=== PATIENT | male | born 1945 | race African-American/Black ===

== ENCOUNTER 2023-07-31 14:42 | Outpatient (REF) | payer MEDICAID, SELFPAY ==
[2023-07-31 16:22] LABS: Vitamin B12 492 pg/mL (200-900)
[2023-08-01 08:22] LABS: Syphilis Screen Nonreactive (Nonreactive)
[2023-08-01 17:08] LABS: Lyme Abs Screen <0.90 index
== END 2023-07-31 14:43 | disposition home or self-care (01) ==
LOC: HO.LAB 14:42
PROVIDERS: Psychiatry & Neurology Neurology; Visit Provider Internal Medicine
DX: G30.9 Alzheimer's disease, unspecified (principal)
CPT/HCPCS: 36415; 82607; 86617; 86618; 86780

== ENCOUNTER 2025-03-05 08:18 | Outpatient (AMB) | payer MEDICAID, SELFPAY ==
--- OUTSIDE RECORDS SUMMARY | 2025-03-05 08:26 | XMS_ITS | Clinical Summary ---
Author Organization [address] [facility] Address [address] [place] [address] Phone Care Team Providers Care Maori Physiotherapist Name Role Phone Hodan Mobley DO Primary Care Provider [phone] Allergies No known active allergies Medications melatonin 3 mg tablet Take 2 tablets (6 mg total) by mouth at bedtime. 5 Active hgwqvmie-bnv-hsao ous sulfate 4.5 mg iron tablet Take 1 tablet by mouth 1 (one) time each day. 5 Active acetaminophen (TYLENOL) 325 mg tablet Take 2 tablets (650 mg total) by mouth every 4 (four) hours if needed for mild pain. Active memantine (NAMENDA) 10 mg tablet Take 1 tablet (10 mg total) by mouth 1 (one) time each day. for 90 days 30 each 5 Active tamsulosin (FLOMAX) 0.4 mg 24 hr capsuleIndication s:Benign prostatic hyperplasia with lower urinary tract symptoms Take 1 capsule (0.4 mg total) by mouth 1 (one) time each day. TAKE 1 CAPSULE BY MOUTH DAILY. TAKE 30 MINS AFTER SAME MEAL EVERY DAY. Strength: 0.4 mg 90 each 1 5 07/20/20 25 Active amLODIPine (NORVASC) 10 mg tabletIndications :Essential (primary) hypertension Take 1 tablet (10 mg total) by mouth 1 (one) time each day. 90 each 1 0507/20/20 Active lisinopriL (PRINIVIL,ZESTRIL ) 10 mg tabletIndications :Essential (primary) hypertension Take 2 tablets (20 mg total) by mouth 1 (one) time each day. 180 each 5 07/20/20 Active atorvastatin (LIPITOR) 20 mg tabletIndications :Subarachnoid hemorrhage ([facility] V24, [facility] V28) Take 1 tablet (20 mg total) by mouth at bedtime. 90 each 5 07/20/20 Active Active Problems Problem Noted Date Diagnosed Date Subarachnoid hemorrhage ([facility] V24, [facility] V2 8) 01/08/2025 Fainting 07/16/2024 Dementia without behavioral disturbance, psychotic disturbance, mood disturbance, or anxiety ([facility] V24, [facility] V28) 06/07/2024 BPH (benign prostatic hyperplasia) 10/11/2022 HTN (hypertension) 10/11/2022 Encounters Date Type Department Care Team Description 01/23/2025 Telephone Internal Medicine - [address] [phone] Hodan Mobley DO vna 01/21/2025 10:30 AM EDT Office Visit Internal Medicine - [address] [phone] Shanelle Hoyos NP Hospital discharge follow-up (Primary Dx); Subarachnoid hemorrhage ([facility] V24, [facility] V28); BPH associated with nocturia; 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, psychotic disturbance, mood disturbance, or anxiety, unspecified timing of dementia onset ([facility] V24, [facility] V28); Essential (primary) hypertension; Benign prostatic hyperplasia with lower urinary tract symptoms 01/17/2025 Telephone Internal Medicine - [address] [place] [phone] Hodan Mobley DO VNA 01/13/2025 Telephone Internal Medicine - [address] [place] [phone] Hodan Mobley DO Hospital Follow-up 01/13/2025 Plan of Care Documentation [facility] [address] [place] [phone] 01/08/2025 4:20 PM EDT - 01/16/2025 10:50 AM EDT Hospital Encounter [facility] [address] [place] [phone] Bridgett Headley DO Essential (primary) hypertension; Benign prostatic hyperplasia with lower urinary tract symptoms Discharge Disposition: Home or Self Care 12/06/2024 8:45 AM EDT [facility] [place] [phone] Kacey Bernard NP Primary hypertension (Primary Dx); Benign prostatic hyperplasia with urinary frequency; 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, psychotic disturbance, mood disturbance, or anxiety, unspecified timing of dementia onset ([facility] V24, [facility] V28) from Last 3 Months Immunizations Name Administration Dates Next Due Influenza trivalent, 0.5mL ( Fluzone High-dose) 65yo and older 05/10/2023 Medical History Medical History Date Comments Hypertension Benign prostatic hyperplasia Dementia ([facility] V24, [facility] V28) Cerebrovascular accident ([facility] V24, [facility] V 28) Social History Tobacco Use Types Packs/Day Years Used Date Smoking Tobacco: Never Tobacco Cessation:Counseling Given: Not Answered Alcohol Use Standard Drinks/Week Comments Never 0 (1 standard drink = 0.6 oz pur e alcohol) Health Literacy Answer Date Recorded How often do you need to hav e someone help you when you read instructions, pamphlets, or other written material from your doctor or pharmacy? Always 01/15/2025 Caregiver: How often do you need to have someone help you when you read instructions, pamphlets, or other written material from your doctor or pharmacy? Not on file 01/15/2025 Transportation Answer Date Recorded Has the lack of transportati on kept you from meetings, work, or from getting things needed for daily living? No Has the lack of transportati on kept you from medical appointments or from getting medications? No 01/09/2025 Social Isolation Answer Date Recorded How often do you feel lonely or isolated from those around you? Unable to respond 01/15/2025 Sex and Gender Information Value Date Recorded Sex Assigned at Male 01/08/2025 8:43 AM EDT Legal Sex Male 8:21 PM EST Gender Identity Male 01/08/2025 8:43 AM EDT Sexual Orientation Straight 01/08/2025 8: 43 AM EDT Obstetrics History Last Filed Vital Signs Vital Sign Reading Time Taken Comments Blood Pressure 118/50 01/21/2025 10:34 AM EDT Pulse 80 01/21/2025 10:34 AM EDT Temperature 36.8 C (98.2 F) 01/16/2025 8:49 AM EDT Respiratory Rate 18 01/16/2025 3:35 AM EDT Oxygen Saturation 100% 01/16/2025 8:49 AM EDT Inhaled Oxygen Concentration - - Weight 74.3 kg (163 lb 12.8 oz) 025 10:34 AM EDT Height 180 cm (5' 10.87 ) 01/08/2025 11 :50 AM EDT Body Mass Index 22.93 01/08/2025 11:50 AM EDT Plan of Treatment Upcoming Encounters Date Type Department Care Team (Late st Contact Info) Description 06/18/2025 9:00 AM EDT [facility] [address] [place] [address] Hodan Mobley, [address] [place] [address] Health Maintenance Due Date Last Done Comments DTaP,Tdap,and Td Vaccines (1 - Tdap) 11/11/1963 Zoster Vaccines (1 of 2) 1994 RSV Immunization Adult Patients (1 - 1-dose 75+ series) 11/11/2019 COVID-19 Vaccine ( - 2023-2 5 season) 2024 Influenza Vaccine (#1) 2025 05/10/2023 Hypertension/CHF/CAD Annual BMP Blood Test 01/15/2026 01/15/2025, 01/09/2025, 12/26/2024 Social Influencers of Health Screening 01/15/2026 01/15/2025 Falls Risk Assessment 01/16/2026 01/16/2025 Depression Screening 01/21/2026 01/21/2025 Cholesterol Screening (Lipid Panel) 06/07/2029 06/07/2024, 06/07/2024 HIB Vaccines Aged Out No longer eligi ble based on patient's age to complete this topic HPV Vaccines Aged Out No longer eligi ble based on patient's age to complete this topic Hepatitis A Vaccines Aged Out No long er eligible based on patient's age to complete this topic Hepatitis B Vaccines Aged Out No long er eligible based on patient's age to complete this topic IPV Vaccines Aged Out No longer eligi ble based on patient's age to complete this topic MMR Vaccines Aged Out No longer eligi ble based on patient's age to complete this topic Meningococcal ACWY Vaccine Aged Out N o longer eligible based on patient's age to complete this topic Meningococcal B Vaccine Aged Out No l onger eligible based on patient's age to complete this topic Pneumococcal Vaccine: 50+ Years Discontinued RSV Immunization Patients Under 20 months Aged Out No longer eligible based on patient's age to complete this topic Varicella Vaccines Aged Out No longer eligible based on patient's age to complete this topic Procedures Procedure Name Priority Date/Time Associated Diagnosis Comments ECG ANNOTATED 01/17/2025 GROVES URINE CULTURE TUBE Routine 01/15/2025 11:35 AM EDT URINALYSIS WITH REFLEX MICROSCOPIC AND CULTURE Routine 01/15/2025 11:35 AM EDT URINALYSIS WITH REFLEX MICROSCOPIC AND CULTURE Routine 01/15/2025 11:35 AM EDT LAVENDER - EDTA Routine 01/15/2025 8:55 AM EDT EXTRA TUBES Routine 01/15/2025 8:55 AM EDT COMPREHENSIVE METABOLIC PANEL Routine 01/15/2025 8:55 AM EDT COMPLETE BLOOD COUNT Routine 01/15/2025 4:45 AM EDT XR SHOULDER 2+ VIEWS LEFT Routine 01/11/2025 1:21 AM EDT XR ELBOW 3+ VIEWS LEFT Routine 01/11/2025 1:21 AM EDT ECG 12-LEAD STAT 01/10/2025 11:56 PM EDT POCT GLUCOSE BLOOD Routine 01/10/2025 11 :45 PM EDT CBC WITH AUTO DIFFERENTIAL Routine 01/09/2025 5:13 AM EDT COMPREHENSIVE METABOLIC PANEL Routine 01/09/2025 5:13 AM EDT CBC AND DIFFERENTIAL Routine 01/09/2025 5:13 AM EDT BASIC METABOLIC PANEL Routine 12/26/2024 10:32 AM EDT Primary hypertension LIPID PANEL Routine 06/07/2024 from Last 3 Months or Most Recently Relevant to Health Maintenance Results * ECG-Annotated (01/17/2025) us Provider Onbase MD ECG ORDERABLES Final Result * Urinalysis with reflex microscopic and culture (01/15/2025 11:35 AM EDT) Specific [place] Urine 1.010 1.003 - 1.030 LAB URINALYSIS - AUTOMATED METHOD 01/15/2025 11:54 AM [facility] pH, Urine 7.0 5.0 - 8.0 pH LAB URINALYSIS - AUTOMATED METHOD 01/15/2025 11:54 AM [facility] Leukocytes, Urine Negative Negative LAB URINALYSIS - AUTOMATED METHOD 01/15/2025 11:54 AM [facility] Nitrite, Urine Negative Negative LAB URINALYSIS - AUTOMATED METHOD 01/15/2025 11:54 AM [facility] Protein, Urine Negative <=Trace mg/dL LAB URINALYSIS - AUTOMATED METHOD 01/15/2025 11:54 AM EDT [facility] Glucose, Urine Negative Negative mg/dL LAB URINALYSIS - AUTOMATED METHOD 01/15/2025 11:54 AM EDT [facility] Ketones, Urine Negative Negative mg/dL LAB URINALYSIS - AUTOMATED METHOD 01/15/2025 11:54 AM EDT [facility] Urobilinogen, Urine 1.0 0.2 - 1.0 mg/dL LAB URINALYSIS - AUTOMATED METHOD 01/15/2025 11:54 AM EDT [facility] Bilirubin, Urine Negative Negative LAB URINALYSIS - AUTOMATED METHOD 01/15/2025 11:54 AM EDT [facility] Blood, Urine Negative Negative LAB URINALYSIS - AUTOMATED METHOD 01/15/2025 11:54 AM EDT [facility] Urine Urine specimen obtained by clean catch procedure / Unknown Non-blood Collection / Unknown 01/15/2025 11:35 AM EDT 01/15/2025 11:42 AM EDT us Sandrita KULKARNI LAB URINE ORDERABLES Final R esult [facility] [address] [place] [address], [place] [phone] * [place] urine culture tube (01/15/2025 11:35 AM EDT) Extra Tube Hold for add-ons. 01/15/2025 1:01 PM EDT [facility] Comment:Auto resulted. Urine Urine specimen obtained by clean catch procedure / Unknown Non-blood Collection / Unknown 01/15/2025 11:35 AM EDT 01/15/2025 11:42 AM EDT us Sandrita KULKARNI LAB URINE ORDERABLES Final R esult [facility] [address] [place] [address], [place] [phone] * Lavender tube (01/15/2025 8:55 AM EDT) [facility] Extra Tube Hold for add-ons. 01/15/2025 11:01 AM EDT [facility] Comment:Auto resulted. Blood Venous blood specimen / Unknown Venipuncture / Unknown 01/15/2025 8:55 AM EDT 01/15/2025 9:03 AM EDT us Bridgett Headley DO LAB BLOOD ORDERABLES Nina cartwright Result [facility] [address] [place] [address], [place] [phone] * (ABNORMAL) Comprehensive metabolic panel (01/15/2025 8:55 AM EDT) Only the most recent of2 resultswithin the time period is included. [facility] Sodium 137 133 - 145 mmol/L LAB CHEMISTRY METHOD 01/15/2025 9:47 AM [facility] Potassium 4.7 3.5 - 5.5 mmol/L LAB CHEMISTRY METHOD 01/15/2025 9:47 AM [facility] Chloride 102 96 - 110 mmol/L LAB CHEMISTRY METHOD 01/15/2025 9:47 AM [facility] CO2 31 21 - 32 mmol/L LAB CHEMISTRY METHOD 01/15/2025 9:47 AM [facility] Anion Gap 4 3 - 11 LAB CHEMISTRY METHOD 01/15/2025 9:47 AM [facility] Glucose 111(H) 70 - 100 mg/dL LAB CHEMISTRY METHOD 01/15/2025 9:47 AM [facility] BUN 19 5 - 25 mg/dL LAB CHEMISTRY METHOD 01/15/2025 9:47 AM [facility] Creatinine 1.15 0.70 - 1.30 mg/dL LAB CHEMISTRY METHOD 01/15/2025 9:47 AM [facility] eGFR 64 >=60 mL/min/1. 73m2 LAB CHEMISTRY METHOD 01/15/2025 9:47 AM [facility] Comment:Calculation based on the Chronic Kidney Disease Epidemiology Collaboration (CKD-EPI) equation refit without adjustment for race. BUN/Creatinine Ratio 16.5 LAB CHEMISTRY METHOD 01/15/2025 9:47 AM [facility] Calcium 9.7 8.5 - 10.5 mg/dL LAB CHEMISTRY METHOD 01/15/2025 9:47 AM [facility] AST (SGOT) 11 10 - 42 unit/L LAB CHEMISTRY METHOD 01/15/2025 9:47 AM [facility] ALT (SGPT) 18 10 - 60 unit/L LAB CHEMISTRY METHOD 01/15/2025 9:47 AM [facility] Alkaline Phosphatase 99 42 - 121 unit/L LAB CHEMISTRY METHOD 01/15/2025 9:47 AM [facility] Total Protein 7.9 6.0 - 8.0 g/dL LAB CHEMISTRY METHOD 01/15/2025 9:47 AM [facility] Albumin 4.0 3.2 - 5.0 g/dL LAB CHEMISTRY METHOD 01/15/2025 9:47 AM [facility] Total Bilirubin 0.7 0.0 - 1.4 mg/dL LAB CHEMISTRY METHOD 01/15/2025 9:47 AM [facility] Blood Venous blood specimen / Unknown Venipuncture / Unknown 01/15/2025 8:55 AM EDT 01/15/2025 9:03 AM EDT us Bridgett Headley DO LAB BLOOD ORDERABLES Nina cartwright Result [facility] [address] [place] [address], * (ABNORMAL) Complete blood count (01/15/2025 4:45 AM EDT) [facility] Signature WBC 4.7(L) 4.8 - 10.8 K/mcL LAB HEMETOLOGY METHOD 01/15/2025 5:43 AM EDT [facility] RBC 4.70 4.50 - 5.50 M/mcL LAB HEMETOLOGY METHOD 01/15/2025 5:43 AM EDT [facility] Hemoglobin 14.7 13.5 - 17.5 g/dL LAB HEMETOLOGY METHOD 01/15/2025 5:43 AM EDT [facility] Hematocrit 47.5 42.0 - 54.0 % LAB HEMETOLOGY METHOD 01/15/2025 5:43 AM EDT [facility] MCV 101.5(H) 79.0 - 98.0 FL LAB HEMETOLOGY METHOD 01/15/2025 5:43 AM EDT [facility] MCH 31.4 27.0 - 32.0 pcg LAB HEMETOLOGY METHOD [facility] MCHC 30.9(L) 32.0 - 37.0 g/dL LAB HEMETOLOGY METHOD 01/15/2025 5:43 AM EDT [facility] RDW 11.8 11.0 - 15.0 % LAB HEMETOLOGY METHOD 01/15/2025 5:43 AM EDT [facility] Platelets 245 130 - 400 K/mcL LAB HEMETOLOGY METHOD 01/15/2025 5:43 AM EDT [facility] MPV 9.9 7.0 - 11.0 FL LAB HEMETOLOGY METHOD 01/15/2025 5:43 AM EDT [facility] NRBC 0.0 <1.0 % LAB HEMETOLOGY METHOD 01/15/2025 5:43 AM EDT [facility] NRBC Absolute 0.00 <0.10 K/mcL LAB HEMETOLOGY METHOD 01/15/2025 5:43 AM EDT [facility] Blood Venous blood specimen / Unknown Venipuncture / Unknown 01/15/2025 4:45 AM EDT 01/15/2025 5:34 AM EDT us Sandrita KULKARNI LAB BLOOD ORDERABLES Final R esult [facility] [address] [place] [address], * XR Elbow 3+ Views Left (01/11/2025 1:21 AM EDT) Anatomical Region Laterality Modality Upper Extremities, Elbow Left Radiogr aphic Imaging 01/11/2025 10:4 3 AM EDT Impressions 01/11/2025 10:46 AM EDT No acute fracture or subluxation. -------- FINAL REPORT -------- Dictated By: Keith Orlando Dictated Date: 01/11/2025 10:43 ET Assigned Physician: Keith Orlando Reviewed and Electronically Signed By: Keith Orlando Signed Date: 01/11/2025 10:46 ET Workstation ID: [id number] Transcribed By: Self Edit Transcribed Date: 01/11/2025 10:43 ET Narrative 01/11/2025 10:46 AM EDT EXAMINATION: LEFT ELBOW LEFT SHOULDER CLINICAL INFORMATION: Pain. Fall COMPARISON: None. TECHNIQUE: 4 views left elbow 4 views left shoulder FINDINGS: Left shoulder: The alignment is normal. There is no fracture, focal lesion or periosteal new bone. There is no abnormal soft tissue calcification. There are minor cystic/erosive changes at the expected insertion of the rotator cuff. There is minor spurring of the undersurface of the acromion. No suspicious abnormality in the visualized chest Left elbow: The alignment is normal. No fracture or focal lesion or periosteal new bone. No joint fluid. No opaque loose body. There may be some mild soft tissue swelling over the olecranon. Minor spurs. Procedure Note Keith Orlando MD - 01/11/2025 EXAMINATION: LEFT ELBOW LEFT SHOULDER CLINICAL INFORMATION: Pain. Fall COMPARISON: None. TECHNIQUE: 4 views left elbow 4 views left shoulder FINDINGS: Left shoulder: The alignment is normal. There is no fracture, focal lesion or periostealnew bone. There is no abnormal soft tissue calcification. There are minorcystic/erosive changes at the expected insertion of the rotator cuff.There is minor spurring of the undersurface of the acromion. No suspicious abnormality in the visualized chest Left elbow: The alignment is normal. No fracture or focal lesion or periosteal newbone. No joint fluid. No opaque loose body. There may be some mild softtissue swelling over the olecranon. Minor spurs. IMPRESSION: No acute fracture or subluxation. -------- FINAL REPORT -------- Dictated By: Keith Orlando Dictated Date: 01/11/2025 10:43 ET Assigned Physician: Keith Orlando Reviewed and Electronically Signed By: Keith Orlando Signed Date: 01/11/2025 10:46 ET Workstation ID: [id number] Transcribed By: Self Edit Transcribed Date: 01/11/2025 10:43 ET us Marvin KULKARNI IMG XR PROCEDURES Final Result * XR Shoulder 2+ Views Left (01/11/2025 1:21 AM EDT) Anatomical Region Laterality Modality Upper Extremities, Shoulder Left Radi ographic Imaging 01/11/2025 10:4 3 AM EDT Impressions 01/11/2025 10:46 AM EDT No acute fracture or subluxation. -------- FINAL REPORT -------- Dictated By: Keith Orlando Dictated Date: 01/11/2025 10:43 ET Assigned Physician: Keith Orlando Reviewed and Electronically Signed By: Keith Orlando Signed Date: 01/11/2025 10:46 ET Workstation ID: [id number] Transcribed By: Self Edit Transcribed Date: 01/11/2025 10:43 ET Narrative 01/11/2025 10:46 AM EDT EXAMINATION: LEFT ELBOW LEFT SHOULDER CLINICAL INFORMATION: Pain. Fall COMPARISON: None. TECHNIQUE: 4 views left elbow 4 views left shoulder FINDINGS: Left shoulder: The alignment is normal. There is no fracture, focal lesion or periosteal new bone. There is no abnormal soft tissue calcification. There are minor cystic/erosive changes at the expected insertion of the rotator cuff. There is minor spurring of the undersurface of the acromion. No suspicious abnormality in the visualized chest Left elbow: The alignment is normal. No fracture or focal lesion or periosteal new bone. No joint fluid. No opaque loose body. There may be some mild soft tissue swelling over the olecranon. Minor spurs. Procedure Note Keith Orlando MD - 01/11/2025 EXAMINATION: LEFT ELBOW LEFT SHOULDER CLINICAL INFORMATION: Pain. Fall COMPARISON: None. TECHNIQUE: 4 views left elbow 4 views left shoulder FINDINGS: Left shoulder: The alignment is normal. There is no fracture, focal lesion or periostealnew bone. There is no abnormal soft tissue calcification. There are minorcystic/erosive changes at the expected insertion of the rotator cuff.There is minor spurring of the undersurface of the acromion. No suspicious abnormality in the visualized chest Left elbow: The alignment is normal. No fracture or focal lesion or periosteal newbone. No joint fluid. No opaque loose body. There may be some mild softtissue swelling over the olecranon. Minor spurs. IMPRESSION: No acute fracture or subluxation. -------- FINAL REPORT -------- Dictated By: Keith Orlando Dictated Date: 01/11/2025 10:43 ET Assigned Physician: Keith Orlando Reviewed and Electronically Signed By: Keith Orlando Signed Date: 01/11/2025 10:46 ET Workstation ID: [id number] Transcribed By: Self Edit Transcribed Date: 01/11/2025 10:43 ET us Marvin KULKARNI IMG XR PROCEDURES Final Result * ECG 12 lead (01/10/2025 11:56 PM EDT) Pathologist [facility] Ventricular Rate ECG 68 BPM GEMUSE Atrial Rate 68 BPM GEMUSE P-R Interval 192 ms GEMUSE QRS Duration 86 ms GEMUSE Q-T Interval 376 ms GEMUSE QTc 399 ms GEMUSE P Wave [place] 58 degrees GEMUSE R [place] 61 degrees GEMUSE T [place] 38 degrees GEMUSE ECG Interpretation Normal sinus rhythm Normal ECG No previous ECGs available Confirmed by Lenora THOMASON JAMES ([id number]) on 01/12/2025 6:50:12 AM GEMUSE 01/10/2025 11:5 6 PM EDT 01/12/2025 6:50 AM EDT us Marvin KULKARNI ECG ORDERABLES Final Result Performing Organization Address City/[facility]/ZIP Co de Phone Number GEMUSE * (ABNORMAL) POCT Glucose, blood (01/10/2025 11:45 PM EDT) [facility] Glucose POCT 126(H) 70 - 100 mg/dL 01/10/2025 11:45 PM EDT [facility] Blood Capillary blood specimen / Unknown 01/10/2025 11:45 PM EDT 01/10/2025 11:46 PM EDT Bridgett Headley DO LAB POINT OF CARE TEST DOCKED DEVICE UNSOLICITED RESULTS Final Result [facility] [address] [place] [address], [place] [phone] * (ABNORMAL) CBC auto differential (01/09/2025 5:13 AM EDT) [facility] WBC 4.3(L) 4.8 - 10.8 K/[facility] LAB HEMETOLOGY METHOD 01/09/2025 5:25 AM EDT [facility] RBC 4.20(L) 4.50 - 5.50 M/mcL LAB HEMETOLOGY METHOD 01/09/2025 5:[facility] Hemoglobin 13.3(L) 13.5 - 17.5 g/dL LAB HEMETOLOGY METHOD 01/09/2025 5:25 AM [facility] Hematocrit 41.1(L) 42.0 - 54.0 % LAB HEMETOLOGY METHOD 01/09/2025 5:25 AM [facility] MCV 97.4 79.0 - 98.0 FL LAB HEMETOLOGY METHOD 01/09/2025 5:25 AM [facility] MCH 31.5 27.0 - 32.0 pcg LAB HEMETOLOGY METHOD 01/09/2025 5:25 AM [facility] MCHC 32.4 32.0 - 37.0 g/dL LAB HEMETOLOGY METHOD 01/09/2025 5:25 AM [facility] RDW 11.9 11.0 - 15.0 % LAB HEMETOLOGY METHOD 01/09/2025 5:25 AM [facility] Platelets 203 130 - 400 K/mcL LAB HEMETOLOGY METHOD 01/09/2025 5:25 AM [facility] MPV 9.6 7.0 - 11.0 FL LAB HEMETOLOGY METHOD 01/09/2025 5:25 AM [facility] NRBC 0.0 <1.0 % LAB HEMETOLOGY METHOD 01/09/2025 5:25 AM [facility] NRBC Absolute 0.00 <0.10 K/mcL LAB HEMETOLOGY METHOD 01/09/2025 5:25 AM [facility] Neutrophils Relative 35.7 % LAB HEMETOLOGY METHOD 01/09/2025 5:25 AM [facility] Lymphocytes Relative 54.0 % LAB HEMETOLOGY METHOD 01/09/2025 5:25 AM T [facility] Monocytes Relative 7.0 % LAB HEMETOLOGY METHOD 01/09/2025 5:25 AM [facility] Eosinophils Relative 2.6 % LAB HEMETOLOGY METHOD 01/09/2025 5:25 AM [facility] Basophils Relative 0.5 % LAB HEMETOLOGY METHOD 01/09/2025 5:25 AM [facility] Immature Granulocytes Relative 0.2 % LAB HEMETOLOGY METHOD 01/09/2025 5:25 AM [facility] Neutrophils Absolute 1.53 1.50 - 7.00 K/mcL LAB HEMETOLOGY METHOD 01/09/2025 5:25 AM [facility] Lymphocytes Absolute 2.31 1.00 - 5.00 K/mcL LAB HEMETOLOGY METHOD 01/09/2025 5:25 AM [facility] Monocytes Absolute 0.30 0.20 - 1.00 K/mcL LAB HEMETOLOGY METHOD 01/09/2025 5:25 AM [facility] Eosinophils Absolute 0.11 0.00 - 0.50 K/mcL LAB HEMETOLOGY METHOD 01/09/2025 5:25 AM [facility] Basophils Absolute 0.02 0.00 - 0.20 K/mcL LAB HEMETOLOGY METHOD 01/09/2025 5:25 AM [facility] Immature Granulocytes Absolute 0.01 0.00 - 0.03 K/mcL LAB HEMETOLOGY METHOD 01/09/2025 5:25 AM [facility] Blood Venous blood specimen / Unknown Venipuncture / Unknown 01/09/2025 5:13 AM EDT 01/09/2025 5:20 AM EDT Donald KULKARNI LAB BLOOD ORDERABLES Nina cartwright Result [facility] [address] [place] [address], * Basic metabolic panel (12/26/2024 10:32 AM EDT) Sodium 140 133 - 145 mmol/L LAB CHEMISTRY METHOD 12/26/2024 12:43 PM [facility] Potassium 4.1 3.5 - 5.5 mmol/L LAB CHEMISTRY METHOD 12/26/2024 12:43 PM [facility] Chloride 106 96 - 110 mmol/L LAB CHEMISTRY METHOD 12/26/2024 12:43 PM [facility] CO2 27 21 - 32 mmol/L LAB CHEMISTRY METHOD 12/26/2024 12:43 PM [facility] Anion Gap 7 3 - 11 LAB CHEMISTRY METHOD 12/26/2024 12:43 PM [facility] Glucose 72 70 - 100 mg/dL LAB CHEMISTRY METHOD 12/26/2024 12:43 PM [facility] BUN 12 5 - 25 mg/dL LAB CHEMISTRY METHOD 12/26/2024 12:43 PM [facility] Creatinine 1.05 0.70 - 1.30 mg/dL LAB CHEMISTRY METHOD 12/26/2024 12:43 PM [facility] eGFR 72 >=60 mL/min/1. 73m2 LAB CHEMISTRY METHOD 12/26/2024 12:43 PM [facility] Comment:Calculation based on the Chronic Kidney Disease Epidemiology Collaboration (CKD-EPI) equation refit without adjustment for race. BUN/Creatinine Ratio 11.4 LAB CHEMISTRY METHOD 12/26/2024 12:43 PM [facility] Calcium 9.2 8.5 - 10.5 mg/dL LAB CHEMISTRY METHOD 12/26/2024 12:43 PM [facility] Blood Venous blood specimen / Unknown Venipuncture / Unknown 12/26/2024 10:32 AM EDT 12/26/2024 10:32 AM EDT Kacey Bernard NP LAB BLOOD ORDERABLES Final Resu lt [facility] [address] [place] [address], * Lipid panel (06/07/2024) LDL/HDL Ratio 4 Triglycerides 222 mg/dL Cholesterol 208 mg/dL HDL 52 mg/dL LDL Cholesterol 112 mg/dL Blood Venous blood specimen / Unknown Historical Provider LAB BLOOD ORDERABLES Nina l Result from Last 3 Months or Most Recently Relevant to Health Maintenance Insurance [place]ICA[place] Advance Directives Documents on File Type Date Recorded Patient Hands Hanger Expl anation Advance Directives and Living Will 01/06/2025 12:25 PM [facility]ALTHCARE [facility]OXY * Full Code - Default (Latest Code Status on File) Date Activated Date Inactivated Comments 01/08/2025 5:46 PM 01/16/2025 1:04 PM This is orde r is used when code status has not been discussed with the patient, or code status is otherwise unknown/unconfirmed To update the patient's code status, place a code status order. Do not modify or discontinue any currently active code status orders. Healthcare Agents on File Name Relationship Healthcare Agent Relationshi p Communication Valdemar Evangelista Health Care Agent Care Teams Maori Physiotherapist Relationship Specialty Start Date End Date Hodan Mobley DO [address] [place] [address] PCP - General 05/04/23
--- NOTE | 2025-03-05 08:27 | A.OFFVIS_ITS ---
Intake Visit Reasons: 6 months f/u Allergies No Known Allergies Allergy (Verified 03/04/25 10:56) Medication List - Last Reconciled 03/05/25 by Thee Guzman MD lisinopril 20 mg PO DAILY memantine (Namenda) 10 mg PO BID 30 days sertraline 25 mg PO DAILY tamsulosin 0.4 mg PO DAILY HPI Comments Details: 78 years old man with no formal education suffered from moderate dementia. He was living at home with his daughter and son. He sometimes had hallucinations. Mood was ok. Sleep was ok. No focal symptoms. [facility] Medical History (Updated 03/05/25 @ 08:30 by Thee Guzman MD) Hypertension Alzheimer disease Review of Systems Const Details: Forgetfulness and confusion. Physical Exam Neuro Other: Mental Status: Alert and awake with normal spontaneity of speech fluency comprehension and flat affect. Cranial Nerves: CN II: Visual steele full to confrontation, visual acuity intact. CN III, IV, : Pupils equal, round, reactive to light and accommodation. Extraocular movements are normal. CN V: Facial sensation is normal. CN VII: Facial movements symmetrical. CN VIII: Hearing intact to bedside conversation is normal. CN IX, X: Palate elevates symmetrically. CN XI: Shoulder shrug and head turn symmetrical. CN XII: Tongue midline without atrophy or fasciculations. Gait and Station: No obvious gait abnormality. No ataxia or instability. Sensory: Intact to light touch, pinprick, and vibration. Romberg is negative. Extrapyramidal: Full facial expressions and blinking. No rigidity. Movements are appropriate with no tremor or abnormality. Speech: Normal; no dysarthria or tremor. Assessment & Plan Assessment & Plan (1) Alzheimer dementia: Code(s): G30.9 - Alzheimer's disease, unspecified; F02.80 - Dementia in other diseases classified elsewhere, unspecified severity, without behavioral disturbance, psychotic disturbance, mood disturbance, and anxiety Category: Medical Qualifiers: Alzheimer's disease onset: late onset Dementia severity: moderate Dementia behavioral or psychological symptom: with anxiety Qualified Code(s): G30.1 - Alzheimer's disease with late onset; F02.B4 - Dementia in other diseases classified elsewhere, moderate, with anxiety Plan Moderately severe dementia probably of Alzheimer type Recommendations: 1. Add donepezil 5 mg a day 2. Continue memantine 10 mg twice a day 3. Continue sertraline 25 mg daily He is living with family and was relatively protected. 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
== END 2025-03-05 08:37 | disposition home or self-care (01) ==
LOC: HO.HSM 08:19
PROVIDERS: PCP Family Medicine; Visit Provider Psychiatry & Neurology Neurology
DX: G30.1 Alzheimer's disease with late onset (principal); F02.B4 Dementia in other diseases classified elsewhere, moderate, with anxiety
CPT/HCPCS: 99214

== ENCOUNTER → 2025-03-05 08:18 | Outpatient (BNVA) | payer MEDICAID, SELFPAY | PROVIDERS: PCP Family Medicine; Visit Provider Psychiatry & Neurology Neurology | DX: G30.1 Alzheimer's disease with late onset (principal); F02.B4 Dementia in other diseases classified elsewhere, moderate, with anxiety | CPT/HCPCS: 99212 ==